=== PATIENT | male | born 1975 | race Caucasian/White ===

== ENCOUNTER 2023-05-26 16:01 | Emergency (ER) | payer MEDICAID, SELFPAY ==
[2023-05-26] MEDS ORDERED: Ibuprofen 800 MG TAB ONE (17:33)
== END 2023-05-26 18:32 | disposition home or self-care (01) ==
LOC: MADERS 16:01
DX: S92.251A Displaced fracture of navicular [scaphoid] of right foot, initial encounter for closed fracture (principal); S92.321A Displaced fracture of second metatarsal bone, right foot, initial encounter for closed fracture; S92.331A Displaced fracture of third metatarsal bone, right foot, initial encounter for closed fracture; S92.341A Displaced fracture of fourth metatarsal bone, right foot, initial encounter for closed fracture; S92.351A Displaced fracture of fifth metatarsal bone, right foot, initial encounter for closed fracture; W11.XXXA Fall on and from ladder, initial encounter; Z87.891 Personal history of nicotine dependence